=== PATIENT | male | born 1945 | race Caucasian/White ===

== ENCOUNTER 2019-10-13 10:14 | Day surgery (SDC) | payer MEDICARE, OTHER ==
[~2019-10-13] VITALS: Ht 180.3 cm; Wt 105.9 kg
[~2019-10-13 10:14] MED LIST: ASPIR 8181 MG PO; ATEN25 PO; ATOR80 PO; NITR.4SL SL; OMEP20ER PO
[2019-10-13] MEDS ORDERED: NITRO PATCH TOP (10:47)
[2019-10-13] MEDS ORDERED: BENADRYL25 MG PO (10:48)
[2019-10-13] MEDS ORDERED: Fish Oil Conc1000 MG PO (10:48)
--- NOTE | 2019-10-13 13:39 | NUR ---
PT ARRIVED BACK TO RECOVERY ROOM IN [facility]. RIGHT RADIAL TR BAND SITE WITH WRIST BOARD IN PLACE; NO HEMATOMA, NO PULSATILE BLEEDING AND SP02 PROBE ON RIGHT INDEX FINGER. PT MERNA PEREZ. CALL LIGHT IN REACH.
--- NOTE | 2019-10-13 13:43 | NUR ---
PT'S IN ROOM
--- NOTE | 2019-10-13 14:28 | NUR ---
PT'S SON IN ROOM; DR MCKEON IN ROOM CONSULTING WITH PT AND FAMILY.
--- NOTE | 2019-10-13 16:38 | NUR ---
Pt discharge gone over with pt and , both verbalize understanding of instructions. Saline lock out with catheter intact. prssure applied to right radial site x 5 minutes to soften hematoma. Pt discharged with sling. Pt to private vehicle per w/c with assist of 1 staff.
== END 2019-10-13 16:30 | disposition home or self-care (01) ==
LOC: MHTC 10:14
PROC: 4A023N7 Measurement of Cardiac Sampling and Pressure, Left Heart, Percutaneous Approach (ICD-10-PCS; principal; 2019-10-13)
PROC: B211YZZ Fluoroscopy of Multiple Coronary Arteries using Other Contrast (ICD-10-PCS; principal; 2019-10-13)
DX: I25.118 Atherosclerotic heart disease of native coronary artery with other forms of angina pectoris (principal); I10 Essential (primary) hypertension; E78.00 Pure hypercholesterolemia, unspecified; I25.2 Old myocardial infarction; E78.5 Hyperlipidemia, unspecified; E66.9 Obesity, unspecified; Z91.041 Radiographic dye allergy status; Z91.040 Latex allergy status
CPT/HCPCS: 85347; 93005; 93010; 93458; 93571; 99152; 99153; C1769; C1887; C1894; J0153; J1644; J2250; J3010; J7030; Q9967

== ENCOUNTER 2023-05-18 08:37 | Day surgery (SDC) | payer MEDICARE, OTHER ==
[~2023-05-18] VITALS: Ht 173 cm; Wt 84.4 kg
[2023-05-18] VITALS (12 sets, daily range): BP systolic 118–153; BP diastolic 65–92
[~2023-05-18 08:37] MED LIST changes: +BENADRYL25 MG PO; +CLOP75 PO; +Fish Oil Conc1000 MG PO; +NITRO PATCH TOP
[2023-05-18] MEDS ORDERED: METOPROLOL TART25 MG PO (09:10)
--- NOTE | 2023-05-18 14:35 | NUR ---
Ambulatory in Day Surgery. Surgical site prepped with 2% Chlorhexidine cloth wipe. History, Chart, Medications and Allergies reviewed before start of procedure. Patient States Post-Procedure ride home has been arranged. Patient confirms NPO status and agrees with scheduled surgery. Discharge instructions reviewed with patient. Patient verbalizes understanding. Copy given to patient to take home. Discharged via wheelchair to private car for ride home.
== END 2023-05-18 14:32 | disposition home or self-care (01) ==
LOC: ORSCMMR 08:37 → ORD 10:00 → ORSCMMR 10:15 → ORD 10:15 → ORSCMMR 14:32 → ORD 05-25 07:30
PROVIDERS: Surgery
PROC: 0YU64JZ Supplement Left Inguinal Region with Synthetic Substitute, Percutaneous Endoscopic Approach (ICD-10-PCS; principal; 2023-05-18 10:15)
PROC: 0WUF4JZ Supplement Abdominal Wall with Synthetic Substitute, Percutaneous Endoscopic Approach (ICD-10-PCS; principal; 2023-05-18 10:15)
PROC: 8E0W4CZ Robotic Assisted Procedure of Trunk Region, Percutaneous Endoscopic Approach (ICD-10-PCS; principal; 2023-05-18 10:15)
DX: K43.6 Other and unspecified ventral hernia with obstruction, without gangrene (principal); K40.90 Unilateral inguinal hernia, without obstruction or gangrene, not specified as recurrent; I10 Essential (primary) hypertension; K21.9 Gastro-esophageal reflux disease without esophagitis; I25.10 Atherosclerotic heart disease of native coronary artery without angina pectoris; I50.9 Heart failure, unspecified; Z79.02 Long term (current) use of antithrombotics/antiplatelets; N40.0 Benign prostatic hyperplasia without lower urinary tract symptoms; Z79.899 Other long term (current) drug therapy
CPT/HCPCS: A9270; C1781; J0690; J1100; J1885; J2371; J2405; J2704; J3010; J7120

== ENCOUNTER 2025-07-09 13:09 | Emergency (ER) | payer MEDICARE, OTHER ==
[~2025-07-09] VITALS: Ht 177.8 cm; Wt 84.8 kg
[~2025-07-09 13:09] MED LIST changes: +METOPROLOL TART25 MG PO
[2025-07-09 14:39] LABS: BASOPHILS ABSOLUTE AUTO 0.02 K/mm3 (0.00-0.23); BASOPHILS PERCENT AUTO 1 % (0-2); EOSINOPHILS ABSOLUTE AUTO 0.11 K/mm3 (0.00-0.68); EOSINOPHILS PERCENT AUTO 3 % (0-6); Hematocrit 42.2 % (37.0-53.0); Hemoglobin 13.7 g/dL (13.5-17.5); IMMATURE GRAN ABSOLUTE AUTO 0.01 K/mm3 (0.00-0.10); IMMATURE GRAN PERCENT AUTO 0 % (0-1); LYMPHOCYTES ABSOLUTE AUTO 1.00 K/mm3 (0.84-5.20); LYMPHOCYTES PERCENT AUTO 24 % (21-46); MONOCYTES ABSOLUTE AUTO 0.45 K/mm3 (0.16-1.47); MONOCYTES PERCENT AUTO 11 % (4-13); Mean Corpuscular HGB Conc 32.5 g/dL (31.5-36.5); Mean Corpuscular Volume 85 fL (80-100); NEUTROPHILS ABSOLUTE AUTO 2.56 K/mm3 (1.96-9.15); NEUTROPHILS PERCENT AUTO 62 % (41-73); NRBC ABSOLUTE 0.00 K/mm3 (0.00-0.02); NRBC Auto 0.0 /100 WBC (0.0-0.2); Platelet Count 124 K/mm3 (150-400); RDW Coefficient Variation 13.2 % (11.7-14.2); RDW Standard Deviation 40.8 fL (35.1-46.3)
[2025-07-09 14:52] LABS: Alanine Aminotransfer (ALT/SGP 23.0 U/L (12-78); Albumin, Blood 3.7 g/dL (3.4-5.0); Albumin/Globulin Ratio 1.4 (0.8-1.8); Anion Gap 7.0 mmol/L (3-11); Aspartate Aminotrans (AST/SGOT 24.0 U/L (12-37); Bilirubin, Total 0.7 mg/dL (0.1-1.0); Blood Urea Nitrogen 12.0 mg/dL (8-24); CO2, Blood 28.0 mmol/L (21-32); Calcium, Blood 9.1 mg/dL (8.5-10.1); Chloride, Blood 109.0 mmol/L (98-108); Creatinine, Blood 0.88 mg/dL (0.60-1.20); Globulin, Blood 2.7 g/dL (2.2-4.0); Glucose, Blood 164.0 mg/dL (70-99); Potassium, Blood 3.9 mmol/L (3.5-5.5); Sodium, Blood 140.0 mmol/L (136-145); Total Protein, Blood 6.4 g/dL (6.4-8.2)
[2025-07-09] MEDS ORDERED: OXYC5 PO (16:13)
[2025-07-09] MEDS ORDERED: LIDO700A20 TOP (16:26)
[2025-07-09 16:54] VITALS: BP 140/58
== END 2025-07-09 17:02 | disposition home or self-care (01) ==
LOC: ER 13:09
PROVIDERS: Emergency Medicine
DX: M25.512 Pain in left shoulder (principal); M54.2 Cervicalgia; I10 Essential (primary) hypertension; Z91.040 Latex allergy status
CPT/HCPCS: 73030; 80053; 84484; 85025; 93005; 93010; 99284-25; A9270